=== PATIENT | male | born 1945 | race Caucasian/White ===

== ENCOUNTER 2016-09-09 15:30 | Emergency (ER) | payer MEDICARE, OTHER ==
[~2016-09-09] VITALS: Ht 185.4 cm; Wt 93.0 kg
[2016-09-09] MEDS ORDERED: ONDANSETRON 2MG/ML, 2ML IVPush ONE (16:00)
[2016-09-09] MEDS ORDERED: SODIUM CHLORIDE 0.9% 1,000ML IVBOLUS ONE (16:00)
[2016-09-09] MEDS ORDERED: SODIUM CHLORIDE FLUSH 10ML SYR IVF ONE (16:00)
[2016-09-09 16:26] LABS: HEMOGLOBIN 16.3 g/dL (13.7-18.0)
[2016-09-09 16:32] LABS: BLOOD UREA NITROGEN 14 mg/dL (7-18)
[2016-09-09 16:35] LABS: ASPARTATE AMINO TRANSFERASE 26 U/L (15-37)
[2016-09-09] MEDS ORDERED: LOSA1TAB17 PO (17:09)
[2016-09-09] MEDS ORDERED: ATEN25TA PO (17:09)
[2016-09-09] MEDS ORDERED: POTA10TA11 PO (17:10)
[2016-09-09] MEDS ORDERED: LOVA40TA2 PO (17:10)
[2016-09-09 18:57] VITALS: BP 184/92
== END 2016-09-09 19:24 | disposition home or self-care (01) ==
LOC: ED 19:00
DX: K29.00 Acute gastritis without bleeding (principal); K80.20 Calculus of gallbladder without cholecystitis without obstruction
CPT/HCPCS: 36415; 74022; 76700; 80053; 81003; 83690; 85025

== ENCOUNTER 2017-11-15 06:57 | Inpatient (IN) | payer OTHER, MEDICARE ==
[~2017-11-15] VITALS: Ht 185.4 cm; Wt 94.1 kg
[~2017-11-15 06:57] MED LIST: ATEN25TA PO; LOSA1TAB22 PO; LOVA40TA2 PO; POTA10TA11 PO
[2017-11-15] MEDS ORDERED: SODIUM CHLORIDE 0.9% 1,000 ML IV ONE (07:25)
[2017-11-15] MEDS ORDERED: ASPI-515 PO (07:26)
[2017-11-15] MEDS ORDERED: LORA1TAB PO (07:26)
[2017-11-15] MEDS ORDERED: SODIUM CHLORIDE 0.9% 1,000ML IVBOLUS ONE (07:30)
[2017-11-15] MEDS ORDERED: FAMOTIDINE 20 MG/2 ML IVP ONE (07:30)
[2017-11-15] MEDS ORDERED: ONDANSETRON ODT 4 MG PO ONE (07:30)
[2017-11-15] MEDS ORDERED: MORPHINE SULFATE 4 MG/ML, 1ML ONE ×2 (07:41→09:11)
[2017-11-15] MEDS ORDERED: ONDANSETRON ODT 4 MG ONE (07:41)
[2017-11-15] MEDS ORDERED: FAMOTIDINE 20 MG/2 ML ONE (07:41)
[2017-11-15 07:55] LABS: ALANINE AMINOTRANSFERASE 414 U/L (12-78); ALBUMIN 3.8 g/dL (3.4-5.0); ANION GAP 11 mmol/L (5-15); CALCIUM 8.8 mg/dL (8.5-10.1); CHLORIDE 103 mmol/L (98-107); CREATININE 1.17 mg/dL (0.7-1.3)
[2017-11-15] MEDS: MORPHINE SULFATE 4 MG/ML, 1ML IVPush PRN ×2 (07:58→09:12)
[2017-11-15 08:00] LABS: ALKALINE PHOSPHATASE 195 U/L (45-117); BILIRUBIN,TOTAL 2.7 mg/dL (0.2-1.0); TOTAL PROTEIN 7.7 g/dL (6.4-8.2); TROPONIN I < 0.015 ng/mL (0.000-0.045)
[2017-11-15 08:11] LABS: MICROSCOPIC NOT IND
[2017-11-15 08:18] LABS: CULTURE INDICATED? NO
[2017-11-15 08:32] LABS: BASOPHILS # (AUTO) 0.03 x10^3/uL (0-0.1); BASOPHILS % (AUTO) 0 % (0-1); EOSINOPHILS # (AUTO) 0.01 x10^3/uL (0-0.4); EOSINOPHILS % (AUTO) 0 % (1-7); LYMPHOCYTES # (AUTO) 0.49 x10^3/uL (1-3.4); LYMPHOCYTES % (AUTO) 4 % (22-44); MD NO; MEAN CORPUSCULAR HEMOGLOBIN 33.1 pg (27.5-34.5); MEAN CORPUSCULAR HGB CONC 34.7 g/dL (33.2-36.2); MEAN CORPUSCULAR VOLUME 95.5 fL (81-97); MEAN PLATELET VOLUME 8.7 fL (7.4-10.4); MONOCYTES # (AUTO) 0.46 x10^3/uL (0.2-0.8); MONOCYTES % (AUTO) 4 % (2-9); NEUTROPHILS # (AUTO) 10.26 x10^3/uL (1.8-6.8); NEUTROPHILS % (AUTO) 91 % (42-75); PLATELET COUNT 209 x10^3/uL (130-400); RED BLOOD COUNT 4.91 x10^6/uL (4.38-5.82); RED CELL DISTRIBUTION WIDTH 12.5 % (9.4-14.8)
[2017-11-15] MEDS ORDERED: CEFOTETAN PMX 1GM/50ML 50 ML ONE (10:23)
[2017-11-15] MEDS ORDERED: CEFOTETAN PMX 1GM/50ML 50 ML IV ONE (10:30)
[2017-11-15] MEDS ORDERED: ACETAMINOPHEN 500 MG TABLET ONE (11:06)
[2017-11-15 11:22] VITALS: BP 167/100
[2017-11-15] MEDS ORDERED: ACETAMINOPHEN 500 MG TABLET PO ONE (11:30)
[2017-11-15 13:22] VITALS: BP 130/76
[2017-11-15] MEDS ORDERED: EPINEPHRINE 1 MG/ML, 1ML ONE (15:27)
[2017-11-15] MEDS ORDERED: BUPIVACAINE/PF 0.25% ONE (15:27)
[2017-11-15] MEDS ORDERED: BUPIVACAINE/PF 0.25% INFIL ONE (15:35)
[2017-11-15] MEDS ORDERED: PROPOFOL 10 MG/ML, 20ML ONE (15:48)
[2017-11-15] MEDS ORDERED: ROCURONIUM 10MG/ML,5ML ONE (15:49)
[2017-11-15] MEDS ORDERED: ONDANSETRON 2MG/ML, 2ML ONE (15:49)
[2017-11-15] MEDS ORDERED: CEFOTETAN 2 GM ONE (15:49)
[2017-11-15] MEDS ORDERED: DEXAMETHASONE 4 MG/ML, 1ML ONE (15:49)
[2017-11-15] MEDS ORDERED: FENTANYL PF 250 MCG/5ML ONE (15:52)
[2017-11-15] MEDS ORDERED: ALBUTEROL SULFATE 2.5 MG/3 ML NPPB PRN (16:00)
[2017-11-15] MEDS ORDERED: HALOPERIDOL 5 MG/ML IV PRN (16:00)
[2017-11-15] MEDS ORDERED: MORPHINE SULFATE 4 MG/ML, 1ML IVPush PRN (16:00)
[2017-11-15] MEDS ORDERED: PROMETHAZINE 25 MG/ML, 1ML IV PRN (16:00)
[2017-11-15] MEDS ORDERED: ACETAMINOPHEN 325 MG TABLET PO PRN (16:00)
[2017-11-15] MEDS ORDERED: hydrALAzine 20 MG/ML, 1ML IV PRN (16:00)
[2017-11-15] MEDS ORDERED: MEPERIDINE/PF 25MG/0.5ML IVPush PRN (16:00)
[2017-11-15] MEDS ORDERED: FENTANYL PF 100 MCG/2ML IV PRN (16:00)
[2017-11-15] MEDS ORDERED: METOPROLOL 1 MG/ML, 5ML IV PRN (16:00)
[2017-11-15] MEDS ORDERED: LABETALOL 5MG/ML, 20ML IV PRN (16:00)
[2017-11-15] MEDS ORDERED: OXYcodone 5 MG/5 ML ORAL.SOL UDC PO PRN (16:00)
[2017-11-15] MEDS ORDERED: EPHEDRINE 50 MG/ML, 1ML IVPush PRN (16:00)
[2017-11-15] MEDS ORDERED: THROMBIN 5,000 UNIT VIAL TP ONE (16:46)
[2017-11-15] MEDS ORDERED: GLYCOPYRROLATE 0.4 MG/2 ML, 2ML ONE (16:48)
[2017-11-15] MEDS ORDERED: NEOSTIGMINE 1 MG/ML, 10ML ONE (16:48)
[2017-11-15] MEDS ORDERED: OMNIPAQUE 350 MG/ML, 50 ML BOTTLE ONE (16:50)
[2017-11-15] MEDS ORDERED: ACETAMINOPHEN 650 MG/20.3 ML UDC ONE (17:35)
[2017-11-15 18:25] VITALS: BP 159/95
[2017-11-15] MEDS ORDERED: LORazepam 1MG TABLET PO PRN (19:00)
[2017-11-15] MEDS ORDERED: ENALAPRILAT 1.25 MG/ML, 2ML IV PRN (19:00)
[2017-11-15] MEDS ORDERED: ONDANSETRON 2MG/ML, 2ML IV PRN (19:00)
[2017-11-15] MEDS ORDERED: LORazepam 2 MG/ML, 1ML IV PRN (19:00)
[2017-11-15] MEDS: LACTATED RINGERS 1,000 ML IV SCH (19:17)
[2017-11-15] MEDS ORDERED: morphine SULFATE 10 MG/ML, 1ML IV PRN (19:30)
[2017-11-15] MEDS: LORazepam 1MG TABLET PO SCH (21:00)
[2017-11-15] MEDS: LOVASTATIN 40 MG TABLET PO SCH ×2 (21:00→21:34)
[2017-11-15] MEDS: CEFOTETAN PMX 2GM/50ML 50 ML IVPB SCH (21:33)
[2017-11-15] MEDS: POTASSIUM CHLORIDE 20 MEQ TAB.ER.PRT PO SCH (21:34)
[2017-11-15] MEDS: KETOROLAC 30 MG/1 ML IV PRN (21:35)
[2017-11-15 23:20] VITALS: BP 144/77
[2017-11-16 03:36] VITALS: BP 128/75
[2017-11-16] MEDS: LACTATED RINGERS 1,000 ML IV SCH ×2 (05:33→19:43)
[2017-11-16] MEDS: KETOROLAC 30 MG/1 ML IV PRN ×3 (05:33→19:54)
[2017-11-16 05:49] LABS: BASOPHILS # (AUTO) 0.01 x10^3/uL (0-0.1); BASOPHILS % (AUTO) 0 % (0-1); EOSINOPHILS % (AUTO) 0 % (1-7); LYMPHOCYTES # (AUTO) 0.52 x10^3/uL (1-3.4); LYMPHOCYTES % (AUTO) 4 % (22-44); MD NO; MEAN CORPUSCULAR HEMOGLOBIN 32.8 pg (27.5-34.5); MEAN CORPUSCULAR HGB CONC 34.4 g/dL (33.2-36.2); MEAN CORPUSCULAR VOLUME 95.3 fL (81-97); MEAN PLATELET VOLUME 8.8 fL (7.4-10.4); MONOCYTES % (AUTO) 5 % (2-9); NEUTROPHILS # (AUTO) 10.88 x10^3/uL (1.8-6.8); NEUTROPHILS % (AUTO) 91 % (42-75); PLATELET COUNT 171 x10^3/uL (130-400); RED CELL DISTRIBUTION WIDTH 12.6 % (9.4-14.8)
[2017-11-16 05:51] LABS: CHLORIDE 102 mmol/L (98-107)
[2017-11-16] MEDS: ASPIRIN 81 MG TABLET EC PO SCH (06:00)
[2017-11-16 06:02] LABS: ALANINE AMINOTRANSFERASE 336 U/L (12-78); ALBUMIN 2.7 g/dL (3.4-5.0); ALKALINE PHOSPHATASE 119 U/L (45-117); ANION GAP 8 mmol/L (5-15); BILIRUBIN,TOTAL 6.8 mg/dL (0.2-1.0); CALCIUM 8.2 mg/dL (8.5-10.1); CREATININE 1.27 mg/dL (0.7-1.3); TOTAL PROTEIN 6.4 g/dL (6.4-8.2)
[2017-11-16] MEDS ORDERED: LOSARTAN 50MG TABLET ONE (06:28)
[2017-11-16] MEDS: LOSARTAN 50MG TABLET PO SCH (06:30)
[2017-11-16] MEDS: ATENOLOL 25 MG TABLET PO SCH (06:30)
[2017-11-16 08:04] VITALS: BP 130/74
[2017-11-16] MEDS: POTASSIUM CHLORIDE 20 MEQ TAB.ER.PRT PO SCH ×2 (08:35→21:26)
[2017-11-16] MEDS: CEFOTETAN PMX 2GM/50ML 50 ML IVPB SCH (08:51)
[2017-11-16] MEDS: HYDROCHLOROTHIAZIDE 25 MG TABLET PO SCH (08:51)
[2017-11-16] MEDS ORDERED: FENTANYL PF 100 MCG/2ML ONE (12:44)
[2017-11-16] MEDS ORDERED: CEFAZOLIN 1,000 MG ONE (12:57)
[2017-11-16] MEDS ORDERED: SUCCINYLCHOLINE 20 MG/ML, 10ML ONE (12:57)
[2017-11-16] MEDS ORDERED: NEOSTIGMINE 1 MG/ML, 10ML ONE (12:57)
[2017-11-16] MEDS ORDERED: GLYCOPYRROLATE 0.2MG/1ML, 5ML ONE (12:57)
[2017-11-16] MEDS ORDERED: ROCURONIUM 10 MG/ML,10ML ONE (12:57)
[2017-11-16] MEDS ORDERED: PROPOFOL 10 MG/ML, 20ML ONE (12:57)
[2017-11-16] MEDS ORDERED: OMNIPAQUE 350 MG/ML, 50 ML BOTTLE ONE (13:31)
[2017-11-16] MEDS ORDERED: ACETAMINOPHEN 325 MG TABLET ONE (13:58)
[2017-11-16] MEDS ORDERED: FENTANYL PF 100 MCG/2ML IV PRN (14:00)
[2017-11-16] MEDS ORDERED: ONDANSETRON ODT 8 MG PO PRN (14:00)
[2017-11-16] MEDS ORDERED: ACETAMINOPHEN 325 MG TABLET PO PRN (14:00)
[2017-11-16] MEDS ORDERED: ALBUTEROL SULFATE 2.5 MG/3 ML NPPB PRN (14:00)
[2017-11-16] MEDS ORDERED: OXYcodone 5 MG/5 ML ORAL.SOL UDC PO PRN (14:00)
[2017-11-16 20:08] VITALS: BP 183/89
[2017-11-16] MEDS: LORazepam 1MG TABLET PO SCH (21:26)
[2017-11-16] MEDS: LOVASTATIN 40 MG TABLET PO SCH (21:26)
[2017-11-16 21:29] VITALS: BP 177/92
[2017-11-16 23:46] VITALS: BP 178/100
[2017-11-17] MEDS: OXYcodone/APAP 5/325MG TABLET PO PRN ×2 (00:11→04:33)
[2017-11-17 00:52] VITALS: BP 159/81
[2017-11-17 03:32] VITALS: BP 168/79
[2017-11-17] MEDS: LACTATED RINGERS 1,000 ML IV SCH (04:28)
[2017-11-17] MEDS: LOSARTAN 50MG TABLET PO SCH (05:41)
[2017-11-17] MEDS: ASPIRIN 81 MG TABLET EC PO SCH (05:41)
[2017-11-17] MEDS: ATENOLOL 25 MG TABLET PO SCH (05:41)
[2017-11-17 07:00] VITALS: BP 156/80
[2017-11-17] MEDS: POTASSIUM CHLORIDE 20 MEQ TAB.ER.PRT PO SCH (08:57)
[2017-11-17] MEDS: HYDROCHLOROTHIAZIDE 25 MG TABLET PO SCH (08:57)
[2017-11-17 10:16] VITALS: BP 166/85
[2017-11-17] MEDS ORDERED: OXYC-302 PO (10:32)
[2017-11-17] MEDS ORDERED: POLY17PO5 PO (10:32)
[2017-11-17] MEDS ORDERED: AMOX1TAB64 PO (10:33)
== END 2017-11-17 10:57 | disposition home or self-care (01) | DRG 418 ==
LOC: ED 08:50 → EDIP 10:19 → 4NOR 11:13 → DCLOUNGE 11-17 10:45
PROVIDERS: ADMIT Colon & Rectal Surgery; ATTEND Colon & Rectal Surgery
PROC: BF131ZZ Fluoroscopy of Gallbladder and Bile Ducts using Low Osmolar Contrast (ICD-10-PCS; 2017-11-15)
PROC: 0FT44ZZ Resection of Gallbladder, Percutaneous Endoscopic Approach (ICD-10-PCS; principal; 2017-11-15 16:00)
DX: K80.62 Calculus of gallbladder and bile duct with acute cholecystitis without obstruction (principal); E87.2 Acidosis; R74.0 Nonspecific elevation of levels of transaminase and lactic acid dehydrogenase [LDH]; E78.5 Hyperlipidemia, unspecified; I10 Essential (primary) hypertension; K21.9 Gastro-esophageal reflux disease without esophagitis; Z85.048 Personal history of other malignant neoplasm of rectum, rectosigmoid junction, and anus; Z93.3 Colostomy status
CPT/HCPCS: 36415; 71045; 74300; 74328; 76700; 80053; 81003; 83605; 83690; 84484; 85025; 87040; 87077; 87186; 88304; 93005; 96361; 96365; 96375; 96376; J0171; J0690; J1100; J1885; J2405; J2704; J2710; J3010; J3490; Q0162; Q9967; C1769; J0330; J7030; J7120; S0028; S0074

== ENCOUNTER 2019-09-01 15:21 | Emergency (ER) | payer MEDICARE, OTHER ==
[~2019-09-01] VITALS: Ht 185.4 cm; Wt 97.4 kg
[~2019-09-01 15:21] MED LIST changes: +AMOX1TAB64 PO; +ASPI-515 PO; +LORA1TAB PO; +OXYC-302 PO; +POLY17PO5 PO
[2019-09-01] MEDS ORDERED: SILVER NITRATE STICK TP ONE (15:39)
[2019-09-01 16:05] VITALS: BP 183/87
== END 2019-09-01 16:28 | disposition home or self-care (01) ==
LOC: ED 15:40
DX: K94.01 Colostomy hemorrhage (principal); I10 Essential (primary) hypertension; Z85.038 Personal history of other malignant neoplasm of large intestine
CPT/HCPCS: 99281

== ENCOUNTER 2019-09-01 19:27 | Emergency (ER) | payer OTHER, MEDICARE ==
[~2019-09-01] VITALS: Ht 185.4 cm; Wt 96.8 kg
[2019-09-01] MEDS ORDERED: MICROFIBRILLAR COLLAGEN 1 GM TP ONE (19:47)
[2019-09-01] MEDS ORDERED: SILVER NITRATE STICK TP ONE (20:30)
--- NOTE | 2019-09-01 21:08 | NUR ---
assist RN: patient discharged with instruction. verbalized understanding.
[2019-09-01 21:10] VITALS: BP 152/81
== END 2019-09-01 21:12 | disposition home or self-care (01) ==
LOC: ED 20:04
DX: R58 Hemorrhage, not elsewhere classified (principal); K94.01 Colostomy hemorrhage; I10 Essential (primary) hypertension
CPT/HCPCS: 99283

== ENCOUNTER 2019-09-14 11:45 | Emergency (ER) | payer MEDICARE, OTHER ==
[~2019-09-14] VITALS: Ht 185.4 cm; Wt 96.3 kg
[2019-09-14 11:48] VITALS: BP 185/73
[2019-09-14] MEDS ORDERED: LIDOCAINE-MPF 1%, 5ML ONE (12:03)
[2019-09-14] MEDS ORDERED: LIDOCAINE-MPF 1%, 5ML INFIL ONE (12:30)
--- NOTE | 2019-09-14 12:34 | NUR ---
I&D PERFORMED BY , PT DISCHARGED HOME
== END 2019-09-14 12:36 | disposition home or self-care (01) ==
LOC: ED 12:05
DX: D17.79 Benign lipomatous neoplasm of other sites (principal); L02.212 Cutaneous abscess of back [any part, except buttock and flank]; I10 Essential (primary) hypertension; Z93.3 Colostomy status
CPT/HCPCS: 10060

== ENCOUNTER 2019-12-14 14:38 | Emergency (ER) | payer MEDICARE, OTHER ==
[~2019-12-14] VITALS: Ht 185.4 cm; Wt 96.5 kg
--- NOTE | 2019-12-14 15:56 | NUR ---
MEDICATED PER EMAR
--- NOTE | 2019-12-14 15:57 | NUR ---
PT HAS CO HIGH BLOOD PRESSURE (NOTICED "MILD THROBBING RODRIGUEZ) HOME READING 180/90S. PCP TOLD PT TO DOUBLE THE ATENOLOL 25->50, PT REPORTS BP STILL HIGH. DENIES VISION CHANGES OR CHEST PAIN, DENIES SOB REPORT INCREASED SOCIAL STRESSOR LATELY
[2019-12-14 16:08] LABS: ALBUMIN 3.5 g/dL (3.4-5.0); ANION GAP 6 mmol/L (5-15); CALCIUM 8.9 mg/dL (8.5-10.1); CHLORIDE 107 mmol/L (98-107); CREATININE 1.06 mg/dL (0.7-1.3)
[2019-12-14 17:01] VITALS: BP 179/82
--- NOTE | 2019-12-14 17:02 | NUR ---
Reviewed prescribed medications. sxs to watch for and watche would require return to ER.
== END 2019-12-14 17:04 | disposition home or self-care (01) ==
LOC: ED 16:32
DX: I10 Essential (primary) hypertension (principal); Z87.891 Personal history of nicotine dependence
CPT/HCPCS: 36415; 80048; 82040; 99283

== ENCOUNTER 2020-02-03 18:02 | Emergency (ER) | payer MEDICARE, OTHER ==
[~2020-02-03] VITALS: Ht 185.4 cm; Wt 96.9 kg
--- NOTE | 2020-02-03 18:43 | NUR ---
ASSUMED CARE OF PATIENT. PATIENT REPORTS HE HAS HAD HIGH BLOOD PRESSURE AT HOME. PT REPORTS HE HAS HAD A THROBBING FEELING IN HIS HEAD. VS STABLE. COLLECTION TELLER ON. WILL CONTINUE TO MONITOR.
--- NOTE | 2020-02-03 19:09 | NUR ---
RITCHIE SINGLETON IN ROOM
--- NOTE | 2020-02-03 19:30 | NUR ---
LAB IN ROOM
[2020-02-03 19:43] LABS: BASOPHILS # (AUTO) 0.05 x10^3/uL (0-0.1); BASOPHILS % (AUTO) 1 % (0-1); EOSINOPHILS # (AUTO) 0.24 x10^3/uL (0-0.4); EOSINOPHILS % (AUTO) 4 % (1-7); LYMPHOCYTES # (AUTO) 1.23 x10^3/uL (1-3.4); LYMPHOCYTES % (AUTO) 21 % (22-44); MD NO; MEAN CORPUSCULAR HEMOGLOBIN 33.5 pg (27.5-34.5); MEAN CORPUSCULAR HGB CONC 34.4 g/dL (33.2-36.2); MEAN CORPUSCULAR VOLUME 97.2 fL (81-97); MEAN PLATELET VOLUME 8.2 fL (7.4-10.4); MONOCYTES # (AUTO) 0.37 x10^3/uL (0.2-0.8); MONOCYTES % (AUTO) 6 % (2-9); NEUTROPHILS # (AUTO) 3.89 x10^3/uL (1.8-6.8); NEUTROPHILS % (AUTO) 67 % (42-75); PLATELET COUNT 187 x10^3/uL (130-400); RED BLOOD COUNT 4.46 x10^6/uL (4.38-5.82); RED CELL DISTRIBUTION WIDTH 12.7 % (9.4-14.8)
[2020-02-03 19:51] LABS: ALBUMIN 3.8 g/dL (3.4-5.0); ANION GAP 7 mmol/L (5-15); CHLORIDE 105 mmol/L (98-107); CREATININE 1.06 mg/dL (0.7-1.3)
--- NOTE | 2020-02-03 21:10 | NUR ---
DR SUAREZ IN ROOM UPDATING PATIENT.
--- NOTE | 2020-02-03 21:57 | NUR ---
DR SUAREZ AND RITCHIE CHRISTIANSEN AWARE OF BP AT TIME OF DISCHARGED. OKAYED, TO DC PER PROVIDERS. PT TO FOLLOW UP WITH PRIMARY CARE DOCTOR.
[2020-02-03 22:16] VITALS: BP 192/97
== END 2020-02-03 22:18 | disposition home or self-care (01) ==
LOC: ED 19:49
DX: I16.9 Hypertensive crisis, unspecified (principal); R94.31 Abnormal electrocardiogram [ECG] [EKG]; Z87.891 Personal history of nicotine dependence
CPT/HCPCS: 36415; 80048; 82040; 85025; 93005; 99285

== ENCOUNTER → 2020-02-22 | Outpatient (CLI) | payer MEDICARE, OTHER | END | disposition home or self-care (01) | LOC: CVU 15:29 | PROVIDERS: ATTEND Internal Medicine Cardiovascular Disease | DX: I05.1 Rheumatic mitral insufficiency (principal); R94.31 Abnormal electrocardiogram [ECG] [EKG]; I10 Essential (primary) hypertension; R06.02 Shortness of breath | CPT/HCPCS: 93306 ==

== ENCOUNTER 2020-08-29 23:49 | Emergency (ER) | payer MEDICARE, OTHER ==
[~2020-08-29] VITALS: Ht 185.4 cm; Wt 100.3 kg
[~2020-08-29 23:49] MED LIST changes: -ASPI-515 PO; +ASPI-963 PO; -OXYC-302 PO; +OXYC1TAB14 PO
--- NOTE | 2020-08-30 00:22 | NUR ---
PT HERE FOR COUGH X 1 WEEK AND WORSE TODAY. PT STATES HE WAS DIAGNOSED WITH BRONCHITIS, GIVEN TESSALON, ROBATUSSIN, BREATHING TX AND HOME ABX A WEEK AGO WELL. PT DENIES PAIN OR ANY OTHER DISCOMFORT. EKG DONE IN TRIAGE, LABS DRAWN, CXR TAKEN. NO OTHER NEEDS AT THIS TIME. FRIEND AT BEDSIDE
[2020-08-30 00:27] LABS: BASOPHILS % (AUTO) 1 % (0-1); EOSINOPHILS % (AUTO) 5 % (1-7); LYMPHOCYTES % (AUTO) 38 % (22-44); MEAN CORPUSCULAR HEMOGLOBIN 33.9 pg (27.5-34.5); MEAN CORPUSCULAR HGB CONC 35.3 g/dL (33.2-36.2); MEAN PLATELET VOLUME 7.8 fL (7.4-10.4); MONOCYTES % (AUTO) 7 % (2-9); NEUTROPHILS % (AUTO) 49 % (42-75); PLATELET COUNT 243 x10^3/uL (130-400); RED BLOOD COUNT 4.43 x10^6/uL (4.38-5.82); RED CELL DISTRIBUTION WIDTH 12.3 % (9.4-14.8)
[2020-08-30 00:28] LABS: MD NO
[2020-08-30 00:38] LABS: ALANINE AMINOTRANSFERASE 48 U/L (12-78); ALBUMIN 3.7 g/dL (3.4-5.0); ANION GAP 8 mmol/L (5-15); CALCIUM 8.6 mg/dL (8.5-10.1); CHLORIDE 104 mmol/L (98-107); CREATININE 1.07 mg/dL (0.7-1.3)
[2020-08-30 00:43] LABS: ALKALINE PHOSPHATASE 73 U/L (45-117); BILIRUBIN,TOTAL 0.8 mg/dL (0.2-1.0); TOTAL PROTEIN 7.6 g/dL (6.4-8.2); TROPONIN I < 0.015 ng/mL (0.000-0.045)
[2020-08-30 00:52] VITALS: BP 150/78
[2020-08-30] MEDS ORDERED: FLUTICASONE NASAL SPRAY 16GM NAS ONE (09:00)
== END 2020-08-30 02:09 | disposition home or self-care (01) ==
LOC: ED 08-30 00:19
DX: R05 Cough (principal); J00 Acute nasopharyngitis [common cold]; I44.7 Left bundle-branch block, unspecified; E78.00 Pure hypercholesterolemia, unspecified; I10 Essential (primary) hypertension; R07.89 Other chest pain; R09.81 Nasal congestion
CPT/HCPCS: 36415; 71045; 80053; 83690; 83880; 84484; 85025; 93005; 99285